=== PATIENT | male | born 1960 | race Caucasian/White ===

== ENCOUNTER 2016-07-24 20:59 | Emergency (ER) | payer OTHER ==
[~2016-07-24] VITALS: Ht 177.8 cm; Wt 85.0 kg
[2016-07-24 21:01] VITALS: BP 157/90; PULSE 88; RESP 16; TEMP 97.4; O2SAT 98
--- NOTE | 2016-07-24 22:12 | PD ---
HPI Chief Complaint: Eye Problems/Injury Time Seen by Provider: 22:08 Travel History International Travel<30 days: No Contact w/Intl Traveler<30days: No Traveled to known affect area: No History of Present Illness HPI 55-year-old white male presents to emergency Department with complaints of left upper eyelid swelling and pain. He states that this was a stye. He has had this now for the last several days. He has a small amount of tearing. He denies any diplopia, photophobia, mucoid drainage or pain. No trauma. He does not work glasses or contacts. He does work here in the [place]. [employer] Past Medical History Narrative Medical hYPERCHOLESTEROLEMIA Tetanus Vaccination: < 5 Years Past Surgical History Surgical History: No Previous Surgery Social History Alcohol Use: No Tobacco Use: No Allergies-Medications (Allergen,Severity, Reaction): Coded Allergies: No Known Allergies (Unverified , 07/24/16) Review of Systems Except as stated in HPI: all other systems reviewed are Neg Eyes: Positive: Redness, Pain, Tearing, No: Diploplia, Blurred Vision, Photophobia, Drainage, Foreign Body Sensation, Visual changes Physical Exam Narrative GENERAL: This is a well-nourished, well-developed patient, in no apparent distress. SKIN: No rashes, ecchymoses or lesions. Warm and dry. HEAD: Atraumatic. Normocephalic. EYES: PERRL, EOMI, no discharge or injection in the right eye. The left eye is slightly injected. There is swelling and mild tenderness to the upper eyelid lateral edge of the eyelid. There does appear to be a stye developing. The cornea is clear. Sclera is clear except for mild injection. No scleral icterus. EARS: Clear NOSE: Nasal turbinates appear normal. THROAT: Mucosa pink and moist. Airway patent. NECK: Trachea midline. supple, moves head freely. LUNGS: Clear to auscultation. CV: Regular in rhythm. ABDOMEN: Soft nontender. EXT: No clubbing cyanosis or edema. Data Data Last Documented VS Vital Signs Date Time Temp Pulse Resp B/P Pulse Ox O2 Delivery O2 Flow Rate FiO2 07/24/16 21:01 97.4 88 16 157/90 98 Room Air Orders Erythromycin 0.5% Opth Oint (Ilotycin 0. (1/30/17 22:15) [facility] Medical Decision Making Medical Screen Exam Complete: Yes Emergency Medical Condition: Yes Medical Record Reviewed: Yes Differential Diagnosis MDM: High Differential diagnoses: Acute conjunctivitis (bacterial, viral, allergic, traumatic), glaucoma, iritis, traumatic globe injury, foreign body, corneal abrasion, corneal ulcer, diabetic retinopathy, photokeratitis, herpes keratitis , CMV retinitis Narrative Course Patient is given erythromycin ointment to the left eye. He will continue this 4 times daily. This left eyelid stye Diagnosis Primary Impression: Hordeolum of left eye Departure Forms: Tests/Procedures, Work Release Special Instructions: No work 1-2 days. Additional Instructions: Rest. Wash eyelashes with baby shampoo 3 times daily. Warm compresses. Erythromycin ointment one ribbon to the left eye 4 times daily. Followup with an eye doctor in 3-7 days.. Follow-up with a medical doctor one week. Return to the ER if any problems. Med/Other Pt SpecificInfo: Prescription(s) given Disposition: 01 DISCHARGE HOME Condition: Stable Malachi Joseph Jul 24, 2016 22:12
[2016-07-24] MEDS ORDERED: ERYTHROMYCIN 0.5% OPTH OINT 3.5 GM TUBO LEFT EYE ONE (22:15)
[2016-07-24] MEDS ORDERED: cholesteral med PO (22:18)
== END 2016-07-24 22:46 | disposition home or self-care (01) ==
LOC: NEPB 20:59
DX: H00.014 Hordeolum externum left upper eyelid (principal); E78.00 Pure hypercholesterolemia, unspecified
CPT/HCPCS: 99282

== ENCOUNTER 2017-08-24 05:56 | Emergency (ER) | payer OTHER ==
[~2017-08-24] VITALS: Ht 175.3 cm; Wt 82.5 kg
[~2017-08-24 05:56] MED LIST: cholesteral med PO
[2017-08-24 06:04] VITALS: BP 135/81; PULSE 76; RESP 16; TEMP 98.1; O2SAT 97
[2017-08-24] MEDS ORDERED: LOVA10TA PO (06:11)
[2017-08-24] MEDS ORDERED: [UNRECOGNIZED DRUG - CODE] LEFT EYE (06:27)
--- NOTE | 2017-08-24 06:35 | PD ---
HPI Chief Complaint: Eye Problems/Injury Time Seen by Provider: 06:22 Travel History International Travel<30 days: No Contact w/Intl Traveler<30days: No Traveled to known affect area: No History of Present Illness HPI 56-year-old white male presents emergency department with complaints of a stye to his left lower eyelid over the last 2 days. He states that his been getting some crusting and swelling of the lower lid. Minimal pain. He denies any fever or chills. He has had some runny nose, congestion with the seasonal pollen changes. He denies any diplopia or blurred vision. No trauma. No foreign body sensation. Symptoms are moderate. No alleviating factor. No exacerbating factors. Up-to-date with immunizations [facility] Past Medical History Narrative Medical Hypercholesterolemia High Cholesterol: Yes Thyroid Disease: Yes Tetanus Vaccination: < 5 Years Influenza Vaccination: No Past Surgical History Abdominal Surgery: Yes (laproscopic bilateral inguinal hernia repair 07/2017) Other Surgery: Yes (exploratory lap 1976) Social History Alcohol Use: Yes (occasionally) Tobacco Use: Yes (4cig ddaily) Substance Use: No Allergies-Medications (Allergen,Severity, Reaction): Coded Allergies: No Known Allergies (Unverified Adverse Reaction, Unknown, 08/24/17) Reported Meds & Prescriptions Reported Meds & Active Scripts Active Sjuzemdy-Zqwmkmbomj-Ivympqzta Opth Oint (Neomycin/Polymyxin/Bacitracin) 3.5 Gm Oint 1 Applic LEFT EYE Q4H Reported Lovastatin Unknown Strength Tab Unknown Dose PO DAILY Review of Systems Except as stated in HPI: all other systems reviewed are Neg Eyes: Positive: Drainage, Pain, No: Diploplia, Blurred Vision, Photophobia, Redness, Foreign Body Sensation, Tearing, Blind Spots, Visual changes Physical Exam Narrative GENERAL: Well-developed, well-nourished in no acute distress. Nontoxic appearing. HEAD: Normocephalic, atraumatic. EYES: Pupils equal round and reactive. Extraocular motions intact. No scleral icterus. No injection or drainage. Patient has swelling to the left lower eyelid with an obvious stye at the medial tarsal plate. Tender, swollen. No discharge. ENT: TMs clear without erythema. The external auditory canals clear. Nose: clear . Posterior pharynx is pink and moist. No tonsillar edema or exudate. Uvula midline. Airway patent. NECK: Trachea midline.Supple, nontender, moves head freely. No central bony tenderness or spasm. CARDIOVASCULAR: Regular rate and rhythm without murmurs, gallops, or rubs. RESPIRATORY: Clear to auscultation. Breath sounds equal bilaterally. No wheezes , rales, or rhonchi. GASTROINTESTINAL: Abdomen soft, non-tender, nondistended. No hepato-splenomegaly , or palpable masses. No guarding. EXTREMITIES: No clubbing, cyanosis, or edema. No joint tenderness, effusion, or edema noted. BACK: Nontender without deformity or crepitance. No flank tenderness. Data Data Last Documented VS Vital Signs Date Time Temp Pulse Resp B/P (MAP) Pulse Ox O2 Delivery O2 Flow Rate FiO2 08/24/17 06:04 98.1 76 16 135/81 (99) 97 Orders Orders Ed Discharge Order (08/24/17 06:25) MDM Medical Decision Making Medical Screen Exam Complete: No Emergency Medical Condition: No Medical Record Reviewed: No Differential Diagnosis MDM: High Differential diagnoses: Acute conjunctivitis (bacterial, viral, allergic, traumatic), glaucoma, iritis, traumatic globe injury, foreign body, corneal abrasion, corneal ulcer, diabetic retinopathy, photokeratitis, herpes keratitis , CMV retinitis Narrative Course Left lower eyelid stye/hordeolum Diagnosis Primary Impression: Hordeolum of left eye Qualified Codes: H00.015 - Hordeolum externum left lower eyelid Departure Forms: Tests/Procedures, Work Release Special Instructions: No work 2 days. Additional Instructions: Rest. Wash eyelashes with baby shampoo 3 times daily. Warm compresses. Polytrim ophthalmic drops. Followup with an eye doctor in one week. Follow-up with a medical doctor one week. Return to the ER if any problems. Med/Other Pt SpecificInfo: Prescription(s) given Scripts Rlefmslr-Vxpagfkybz-Ffkotkgjs Opth Oint (Nyvmfexs-Sebcbcqmzl-Qkfabnewl Opth Oint ) 3.5 Gm Oint 1 APPLIC LEFT EYE Q4H for Infection, #3.5 GM 0 Refills Prov: Rafael Garcia MD 08/24/17 Disposition: 01 DISCHARGE HOME Condition: Stable Malachi Joseph Aug 24, 2017 06:35
== END 2017-08-24 06:38 | disposition home or self-care (01) ==
LOC: NEPD 05:56
DX: H00.015 Hordeolum externum left lower eyelid (principal); E78.00 Pure hypercholesterolemia, unspecified; F17.210 Nicotine dependence, cigarettes, uncomplicated
CPT/HCPCS: 99283